=== PATIENT | female | born 1985 | race Caucasian/White ===

== ENCOUNTER 2019-05-21 12:07 | Observation (INO) | payer MEDICAID ==
[~2019-05-21] VITALS: Ht 162.6 cm; Wt 74.8 kg
[2019-05-21 12:45] LABS: APPEARANCE,URINE Cloudy (CLEAR); BILIRUBIN,URINE Negative (NEGATIVE); COLOR,URINE Yellow (YELLOW); GLUCOSE, URINE (UA) Negative (NEGATIVE); KETONES,URINE Negative (NEGATIVE); LEUKOCYTE ESTERASE ,URINE Large (NEGATIVE); NITRATE,URINE Negative (NEGATIVE); OCCULT BLOOD,URINE Negative (NEGATIVE); PH,URINE 6.5 (5.0-8.0); PROTEIN,URINE Negative (NEGATIVE)
[2019-05-21 13:06] LABS: BACTERIA,URINE Moderate /HPF (None Seen); MUCUS,URINE Few LPF (None Seen); RBC,URINE 0-1 /HPF (0-1)
[2019-05-21] MEDS ORDERED: LACTATED RINGERS 1000ML IV SCH (13:30)
[2019-05-21] MEDS ORDERED: CEFAZOLIN SODIUM 1 GM VIAL IVP SCH (14:30)
== END 2019-05-21 13:30 | disposition home or self-care (01) ==
LOC: EDH 12:07 → LDH 12:08
PROVIDERS: ADMIT Obstetrics & Gynecology; ATTEND Obstetrics & Gynecology
DX: O26.892 Other specified pregnancy related conditions, second trimester (principal); R10.9 Unspecified abdominal pain; O00.01 Abdominal pregnancy with intrauterine pregnancy; O99.332 Smoking (tobacco) complicating pregnancy, second trimester; F17.210 Nicotine dependence, cigarettes, uncomplicated; Z3A.22 22 weeks gestation of pregnancy
CPT/HCPCS: 81001; 96374; 99284; G0378; J7120; 96360

== ENCOUNTER 2021-09-17 22:48 | Emergency (ER) | payer MEDICAID ==
[~2021-09-17] VITALS: Ht 165.1 cm; Wt 64.9 kg
[2021-09-17] MEDS ORDERED: BUDESONIDE 0.5 MG/2 ML INH IH ONE (23:12)
[2021-09-17] MEDS ORDERED: 0.9%NACL 1000ML 1,000 ML IV ONE ×2 (23:14→23:30)
[2021-09-17 23:24] VITALS: BP 115/72
[2021-09-17] MEDS ORDERED: SOLU-MEDROL 125MG VIAL IVP ONE (23:30)
[2021-09-17] MEDS ORDERED: ALBUTEROL 0.083% 2.5 MG/3 ML INH IH ONE (23:30)
[2021-09-17] MEDS ORDERED: IPRATROPIUM/ALBUTEROL SULFATE 3 ML SOLUTION IH ONE (23:30)
[2021-09-17] MEDS ORDERED: PRED20TA3 PO (23:46)
[2021-09-17] MEDS ORDERED: FLUT1DIS IH (23:46)
[2021-09-17] MEDS ORDERED: ALBU8.5H8 IH (23:46)
[2021-09-17] MEDS ORDERED: FEXO180T94 PO (23:46)
[2021-09-17] MEDS ORDERED: AMOX-429 PO (23:46)
[2021-09-18] MEDS ORDERED: BUDESONIDE 0.5 MG/2 ML INH IH SCH (09:00)
== END 2021-09-18 00:51 | disposition home or self-care (01) ==
LOC: EDH 22:48
DX: U07.1 COVID-19 (principal); J45.901 Unspecified asthma with (acute) exacerbation; J06.9 Acute upper respiratory infection, unspecified; F17.210 Nicotine dependence, cigarettes, uncomplicated; Z79.51 Long term (current) use of inhaled steroids; Z79.52 Long term (current) use of systemic steroids; Z79.899 Other long term (current) drug therapy
CPT/HCPCS: 71045; 87635; 87804 ×2; 94640 ×3; 96361; 96374; 99285; C9803; J2930; J7030